=== PATIENT | female | born 1990 | race Caucasian/White ===

== ENCOUNTER 2017-03-01 12:20 | Emergency (ER) | payer OTHER ==
[~2017-03-01] VITALS: Ht 170.2 cm; Wt 47.8 kg
[2017-03-01 13:07] LABS: HEMATOCRIT 39.6 % (36.0-46.0); MCH 29.6 PG (29.0-34.0); MCHC 32.3 G/DL (30.0-36.0); MCV 91.5 FL (83-99); MEAN PLAT.VOLUME 12.2 uM^3 (9.5-12.4); PLATELET COUNT 170 K/uL (156-360); RBC DIS.WIDTH-CV 13.1 % (11.8-14.6); RBC DIS.WIDTH-SD 44.1 % (39-53); RED BLOOD COUNT 4.33 M/uL (3.80-5.20); WHITE BLOOD COUNT 7.7 K/uL (4.1-10.2)
[2017-03-01 13:18] LABS: CHLORIDE 106 mEq/L (99-109); POTASSIUM 3.8 mEq/L (3.7-5.4); SODIUM 137 mEq/L (136-147)
[2017-03-01 13:20] LABS: GLUCOSE 102 mg/dL (70-99)
[2017-03-01 13:21] LABS: ANION GAP 9 MEQ/L (2-14)
[2017-03-01 13:22] LABS: TOTAL BILIRUBIN 0.9 mg/dL (0.0-1.0)
[2017-03-01 13:23] LABS: ALKALINE PHOSPHATASE 44 IU/L (3-129)
[2017-03-01 13:24] LABS: GFR ESTIMATE (CALCULATED) > 59 mL/min/
[2017-03-01 13:25] LABS: UREA NITROGEN (BUN) 12 mg/dL (9-23)
[2017-03-01 13:27] LABS: LIPASE 26 U/L (1.0-51.0)
[2017-03-01 13:34] LABS: QUANTITATIVE HCG < 4.0 MIU/ML
[2017-03-01 14:22] LABS: ADD MIUA? NO; BILIRUBIN NEGATIVE; BLOOD NEGATIVE; COLOR STRAW ((YELLOW)); GLUCOSE (STRIP) NEGATIVE; KETONES NEGATIVE; LEUKOCYTES NEGATIVE; NITRITE NEGATIVE; PROTEIN (STRIP) NEGATIVE; SPECIFIC GRAVITY 1.006 (1.000-1.030); UROBILINOGEN 0.2 MG/DL (0.2-1.0)
[2017-03-01] MEDS ORDERED: ULTRAM50 MG PO (14:53)
[2017-03-01] MEDS ORDERED: ZOFRAN ODT4 MG PO (14:53)
[2017-03-01 15:04] VITALS: BP 119/67
== END 2017-03-01 15:04 | disposition home or self-care (01) ==
LOC: EME 12:20
PROVIDERS: Nurse Practitioner Family
DX: N83.202 Unspecified ovarian cyst, left side (principal)
CPT/HCPCS: 76856; 80053; 81003; 83690; 84702; 85027; 99281; 99284